=== PATIENT | male | born 1945 | race Caucasian/White ===

== ENCOUNTER 2022-10-29 11:03 | Observation (INO) | payer MEDICARE, BC ==
[~2022-10-29] VITALS: Ht 175.3 cm; Wt 79.0 kg
[2022-10-29] VITALS (14 sets, daily range): BP systolic 140–174; BP diastolic 70–87
[2022-10-29 11:22] LABS: BASO% 0.7 % (0-3); HEMATOCRIT 41.2 % (39.0-50.0); IMMATURE GRANULOCYTES 0.1 % (0.0-5.0); LYMPH% 25.8 % (15-41); MEAN CELL VOLUME 91.4 fL CALC (80.0-100.0); MONO% 10.7 % (2-13); NEUT# 4.6 thou/uL (1.82-7.42); NEUT% 60.7 % (42-76); RED BLOOD COUNT 4.51 mill/uL (4.70-6.10); RED CELL DISTRI WIDTH 13.9 % (11.5-15.5)
[2022-10-29 11:39] LABS: ALBUMIN 4.3 g/dL (3.2-5.0); ALKALINE PHOSPHATASE 89 u/l (38-126); ANION GAP 10 (6-22 (CALC)); BILIRUBIN, TOTAL 0.5 mg/dL (0.0-1.4); BUN 29 mg/dL (8-23); BUN/CREATININE RATIO 17 (12-20 (CALC)); CARBON DIOXIDE 27 mmol/l (22-30); CHLORIDE 108 mmol/l (95-108); CREATININE 1.7 mg/dL (0.7-1.3); GFR FOR AFR.AMER. 47 ML/MIN (>=60 (CALC)); GFR OTHER RACES 39 ML/MIN (>=60 (CALC)); POTASSIUM 4.3 mmol/l (3.5-5.1); SGOT/AST 36 u/l (19-48); SODIUM 140 mmol/l (137-146); TOTAL PROTEIN 6.9 g/dL (6.3-8.2)
[2022-10-29] MEDS ORDERED: WELLBUTRIN SR100 MG PO (17:41)
[2022-10-29] MEDS ORDERED: [UNRECOGNIZED DRUG - OTHER] PO (17:45)
[2022-10-29] MEDS ORDERED: TADALAFIL20 M1 PO (17:47)
[2022-10-29] MEDS ORDERED: LISINOPRIL2.5 MG PO (17:48)
[2022-10-29] MEDS ORDERED: PRAVASTATIN SOD20 MG PO (17:48)
[2022-10-29] MEDS ORDERED: OMEPRAZOLE DR40 MG PO (17:53)
[2022-10-30] VITALS: BP 129/68
[2022-10-30 04:49] VITALS: BP 134/73
[2022-10-30 05:51] LABS: BASO% 0.7 % (0-3); EOS% 2.4 % (0-8); HEMATOCRIT 40.7 % (39.0-50.0); HEMOGLOBIN 13.8 g/dl (14.0-18.0); IMMATURE GRANULOCYTES 0.1 % (0.0-5.0); LYMPH% 28.7 % (15-41); MEAN CELL VOLUME 90.8 fL CALC (80.0-100.0); MEAN CORPUSCULAR HGB 30.8 pG CALC (26.0-32.0); MEAN CORPUSCULAR HGB CONC 33.9 g/dL CAL (32.0-36.0); NEUT# 4.31 thou/uL (1.82-7.42); NEUT% 57.1 % (42-76); RED BLOOD COUNT 4.48 mill/uL (4.70-6.10); RED CELL DISTRI WIDTH 13.9 % (11.5-15.5)
[2022-10-30 06:14] LABS: ALBUMIN 3.7 g/dL (3.2-5.0); BILIRUBIN, TOTAL 0.5 mg/dL (0.0-1.4); CHOLESTEROL HDL RATIO 3.7 (<4.4 (CALC)); CREATININE 1.5 mg/dL (0.7-1.3); MAGNESIUM 1.9 mg/dL (1.6-2.3); POTASSIUM 4.3 mmol/l (3.5-5.1)
[2022-10-30 06:40] VITALS: BP 121/65
[2022-10-30 10:20] VITALS: BP 121/67
== END 2022-10-30 14:06 | disposition home or self-care (01) ==
LOC: ED 11:03 → ED-I 12:20 → ED 13:18 → MS2 13:19
PROVIDERS: Family Medicine; ADMIT Internal Medicine; ATTEND Internal Medicine
DX: R07.1 Chest pain on breathing (principal); I12.9 Hypertensive chronic kidney disease with stage 1 through stage 4 chronic kidney disease, or unspecified chronic kidney disease; N18.32 Chronic kidney disease, stage 3b; R42 Dizziness and giddiness; K21.9 Gastro-esophageal reflux disease without esophagitis
CPT/HCPCS: J1650

== ENCOUNTER 2023-11-01 10:39 | Emergency (ER) | payer MEDICARE, BC ==
[~2023-11-01] VITALS: Ht 175.3 cm; Wt 74.8 kg
[~2023-11-01 10:39] MED LIST: LISINOPRIL2.5 MG PO; OMEPRAZOLE DR40 MG PO; PRAVASTATIN SOD20 MG PO; TADALAFIL20 M1 PO; WELLBUTRIN SR100 MG PO; [UNRECOGNIZED DRUG - OTHER] PO
[2023-11-01 11:21] VITALS: BP 168/87
[2023-11-01 11:30] VITALS: BP 154/77
[2023-11-01 12:00] VITALS: BP 141/74
[2023-11-01] MEDS ORDERED: TAM75CAP PO (12:00)
[2023-11-01 12:30] VITALS: BP 129/73
[2023-11-01] MEDS ORDERED: MEDDOSEPAK PO (12:45)
[2023-11-01 13:00] VITALS: BP 145/73
[2023-11-01 13:14] VITALS: BP 145/73
== END 2023-11-01 13:23 | disposition home or self-care (01) ==
LOC: ED 10:39
DX: J11.1 Influenza due to unidentified influenza virus with other respiratory manifestations (principal); I12.9 Hypertensive chronic kidney disease with stage 1 through stage 4 chronic kidney disease, or unspecified chronic kidney disease; N18.30 Chronic kidney disease, stage 3 unspecified; K21.9 Gastro-esophageal reflux disease without esophagitis; Z20.822 Contact with and (suspected) exposure to COVID-19

== ENCOUNTER 2023-12-11 08:59 | Emergency (ER) | payer MEDICARE, BC ==
[~2023-12-11] VITALS: Ht 175.3 cm; Wt 75.0 kg
[~2023-12-11 08:59] MED LIST changes: +MEDDOSEPAK PO; +TAM75CAP PO
[2023-12-11 09:09] VITALS: BP 137/78
[2023-12-11 09:15] VITALS: BP 134/80
[2023-12-11] MEDS ORDERED: OFLOXACIN0.3 % OS (09:17)
[2023-12-11] MEDS ORDERED: FAMOTIDINE40 M1 PO (09:20)
[2023-12-11 09:30] VITALS: BP 134/74
[2023-12-11 09:35] VITALS: BP 134/74
[2023-12-12] MEDS ORDERED: PAXLOVID 10 X 11 TAB PO (14:47)
== END 2023-12-11 09:41 | disposition home or self-care (01) ==
LOC: ED 08:59
DX: H10.9 Unspecified conjunctivitis (principal); I12.9 Hypertensive chronic kidney disease with stage 1 through stage 4 chronic kidney disease, or unspecified chronic kidney disease; N18.30 Chronic kidney disease, stage 3 unspecified

== ENCOUNTER 2023-12-12 13:01 | Emergency (ER) | payer MEDICARE, BC ==
[~2023-12-12] VITALS: Ht 175.3 cm; Wt 72.5 kg
[~2023-12-12 13:01] MED LIST changes: +FAMOTIDINE40 M1 PO; +OFLOXACIN0.3 % OS
[2023-12-12] MEDS ORDERED: PAXLOVID 10 X 11 TAB PO (14:47)
[2023-12-12 14:52] VITALS: BP 111/73
== END 2023-12-12 15:02 | disposition home or self-care (01) ==
LOC: ED 13:01
DX: U07.1 COVID-19 (principal); R05.9 Cough, unspecified; J02.9 Acute pharyngitis, unspecified; N18.30 Chronic kidney disease, stage 3 unspecified; R52 Pain, unspecified; I12.9 Hypertensive chronic kidney disease with stage 1 through stage 4 chronic kidney disease, or unspecified chronic kidney disease; R50.9 Fever, unspecified

== ENCOUNTER 2024-12-22 16:42 | Observation (INO) | payer MEDICARE, BC ==
[2024-12-22] VITALS (15 sets, daily range): BP systolic 137–156; BP diastolic 71–87
[~2024-12-22] VITALS: Ht 175.3 cm; Wt 78.4 kg
[~2024-12-22 16:42] MED LIST changes: +CEPHALEXIN500 M1 PO; +PAXLOVID 10 X 11 TAB PO
[2024-12-22 17:08] LABS: BASO% 0.8 % (0-3); HEMATOCRIT 45.7 % (39.0-50.0); HEMOGLOBIN 14.5 g/dl (14.0-18.0); IMMATURE GRANULOCYTES 0.1 % (0.0-5.0); LYMPH% 23.1 % (15-41); MEAN CELL VOLUME 93.5 fL CALC (80.0-100.0); MEAN CORPUSCULAR HGB 29.7 pG CALC (26.0-32.0); MEAN CORPUSCULAR HGB CONC 31.7 g/dL CAL (32.0-36.0); MONO% 9.1 % (2-13); NEUT# 6.19 thou/uL (1.82-7.42); NEUT% 64.9 % (42-76); RED BLOOD COUNT 4.89 mill/uL (4.70-6.10); RED CELL DISTRI WIDTH 13.6 % (11.5-15.5)
[2024-12-22 17:24] LABS: ALBUMIN 4.2 g/dL (3.2-5.0); ALKALINE PHOSPHATASE 94 u/l (38-126); ANION GAP 13 (6-22 (CALC)); BILIRUBIN, TOTAL 0.6 mg/dL (0.2-1.3); BUN 28 mg/dL (8-23); BUN/CREATININE RATIO 17 (12-20 (CALC)); CALCULATED LDLCHOLESTEROL 86 mg/dL (62-129 (CALC)); CARBON DIOXIDE 24 mmol/l (22-30); CHLORIDE 110 mmol/l (95-108); CREATININE 1.6 mg/dL (0.7-1.3); ESTIMATED GFR 43 ML/MIN (>=90 (CALC)); HDL CHOLESTEROL 53 mg/dL (39.0-59.0); POTASSIUM 4.8 mmol/l (3.5-5.1); SGOT/AST 36 u/l (19-48); SODIUM 141 mmol/l (137-146); TOTAL CHOLESTEROL 160 mg/dl (0-199); TOTAL TRIGLYCERIDES 108 mg/dl (0-149); VLDL CHOLESTROL 22 mg/dl (0-38 (CALC))
[2024-12-22 17:40] LABS: PROTHROMBIN TIME 11.1 SECONDS (9.0-12.5)
[2024-12-22] MEDS ORDERED: MAGNESIUM HYDROXIDE 30 ML UDC PO PRN (18:00)
[2024-12-22] MEDS ORDERED: SODIUM CHLORIDE 0.9% 1,000 ML IV PRN (18:00)
[2024-12-22] MEDS ORDERED: ACETAMINOPHEN 325 MG/TAB PO PRN (18:00)
[2024-12-22] MEDS ORDERED: DEXTROSE 250 ML IV PRN (18:00)
[2024-12-22 18:21] LABS: URINE BILIRUBIN - DIPSTICK Negative (NEGATIVE); URINE BLOOD DIPSTICK Negative (NEGATIVE); URINE GLUCOSE - DIPSTICK Negative (NEGATIVE); URINE KETONE Negative (NEGATIVE); URINE LEUK ESTERASE Negative (NEGATIVE); URINE NITRITE - DIPSTICK Negative (Negative); URINE PH 5.5 (4.5-8.0); URINE PROTEIN - DIPSTICK Negative (NEG-TRACE); URINE SPECIFIC GRAVITY <=1.005; URINE UROBILINOGEN - DIPSTICK 0.2 E.U./dL (0.2)
[2024-12-22 18:26] LABS: URINE COLOR Yellow
[2024-12-22] MEDS ORDERED: Heparin SODIUM (Porcine) 5,000 UNITS/ML SDV SC SCH (22:00)
[2024-12-23] VITALS (20 sets, daily range): BP systolic 99–150; BP diastolic 55–76
[2024-12-23 05:00] LABS: ALBUMIN 3.8 g/dL (3.2-5.0); CREATININE 1.7 mg/dL (0.7-1.3); MAGNESIUM 1.9 mg/dL (1.6-2.3); POTASSIUM 4.2 mmol/l (3.5-5.1); TOTAL PROTEIN 6.4 g/dL (6.3-8.2)
[2024-12-23 05:02] LABS: BASO% 0.7 % (0-3); EOS% 2.5 % (0-8); HEMOGLOBIN 14.2 g/dl (14.0-18.0); IMMATURE GRANULOCYTES 0.1 % (0.0-5.0); LYMPH% 29.3 % (15-41); MEAN CELL VOLUME 93.2 fL CALC (80.0-100.0); MEAN CORPUSCULAR HGB 30.1 pG CALC (26.0-32.0); MEAN CORPUSCULAR HGB CONC 32.3 g/dL CAL (32.0-36.0); MONO% 11.1 % (2-13); NEUT# 3.98 thou/uL (1.82-7.42); NEUT% 56.3 % (42-76); RED BLOOD COUNT 4.72 mill/uL (4.70-6.10); RED CELL DISTRI WIDTH 13.4 % (11.5-15.5)
[2024-12-23 05:13] LABS: BILIRUBIN, TOTAL 0.9 mg/dL (0.2-1.3)
[2024-12-23] MEDS ORDERED: CLOPIDOGREL BISULFATE 75 MG/TAB TAB PO SCH (09:00)
[2024-12-23] MEDS ORDERED: PANTOPRAZOLE SODIUM Sesquihydr 40 MG/TAB PO SCH (09:00)
[2024-12-23] MEDS ORDERED: buPROPion HCL 150 MG TAB SR PO SCH (09:00)
[2024-12-23] MEDS ORDERED: ASPIRIN EC 81 MG/TAB PO SCH (17:48)
[2024-12-23] MEDS ORDERED: ATORVASTATIN CALCIUM 40 MG/TAB PO SCH (21:00)
[2024-12-23] MEDS ORDERED: LISINOPRIL 2.5 MG TAB PO SCH (21:00)
[2024-12-24] VITALS (12 sets, daily range): BP systolic 90–131; BP diastolic 43–69
[2024-12-24] MEDS ORDERED: ADLT ASA LOW81 MG PO (09:28)
[2024-12-24] MEDS ORDERED: ATORVASTATIN CA40 MG PO (09:28)
[2024-12-24] MEDS ORDERED: PLAVIX75 MG PO (09:28)
== END 2024-12-24 13:30 | disposition home or self-care (01) ==
LOC: ED 16:42 → ED-I 17:30 → ED 17:51 → ED-I 17:52 → ICU 21:36
PROVIDERS: Family Medicine; Nurse Practitioner Family; ADMIT Internal Medicine; ATTEND Internal Medicine
DX: I63.531 Cerebral infarction due to unspecified occlusion or stenosis of right posterior cerebral artery (principal); H53.462 Homonymous bilateral field defects, left side; R20.0 Anesthesia of skin; R29.701 NIHSS score 1; I12.9 Hypertensive chronic kidney disease with stage 1 through stage 4 chronic kidney disease, or unspecified chronic kidney disease; N18.30 Chronic kidney disease, stage 3 unspecified; K21.9 Gastro-esophageal reflux disease without esophagitis
CPT/HCPCS: J1644